=== PATIENT | male | born 1980 | race Two or more races ===

== ENCOUNTER 2018-06-07 23:02 | Emergency (ER) | payer OTHER ==
[~2018-06-07] VITALS: Ht 193 cm; Wt 129.3 kg
[2018-06-08] MEDS ORDERED: METOCLOPRAMIDE HCL 10 MG/2 ML VIAL ONE (00:53)
[2018-06-08] MEDS: IV NS 0.9% 1,000 ML BAG IV ONE (00:55)
[2018-06-08] MEDS: METOCLOPRAMIDE HCL 10 MG/2 ML VIAL IV ONE (00:55)
[2018-06-08 01:54] VITALS: BP 122/80
== END 2018-06-08 01:55 | disposition home or self-care (01) ==
LOC: ER 23:17
DX: G44.209 Tension-type headache, unspecified, not intractable (principal); E11.9 Type 2 diabetes mellitus without complications
CPT/HCPCS: 82962; 96374; 99284; A4606; J2765; J7030; Z7610

== ENCOUNTER 2023-03-31 11:37 | Emergency (ER) | payer OTHER ==
[~2023-03-31] VITALS: Ht 185.4 cm; Wt 90.7 kg
--- NOTE | 2023-03-31 11:43 | NUR ---
ABDI RA 989 AND CONTENT ADMINISTRATOR OFFICERS FROM LONG-TERM,C/O HEADACHE
[2023-03-31] MEDS ORDERED: IBUPROFEN 400 MG TABLET PO ONE (12:30)
[2023-03-31] MEDS ORDERED: ACETAMINOPHEN ES 500 MG TABLET ONE (12:30)
[2023-03-31] MEDS ORDERED: ACETAMINOPHEN ES 500 MG TABLET PO ONE (12:30)
[2023-03-31] MEDS ORDERED: IBUPROFEN 400 MG TABLET ONE (12:30)
--- NOTE | 2023-03-31 13:25 | NUR ---
pt is medically cleared. d/c to [facility] in stable condition.
[2023-03-31 13:26] VITALS: BP 132/84; O2SAT 99
== END 2023-03-31 13:27 ==
LOC: ER 11:55
DX: S00.12XA Contusion of left eyelid and periocular area, initial encounter (principal); R51.9 Headache, unspecified; E11.9 Type 2 diabetes mellitus without complications; Z60.2 Problems related to living alone; W22.8XXA Striking against or struck by other objects, initial encounter; Y93.89 Activity, other specified; Y92.89 Other specified places as the place of occurrence of the external cause; Y99.8 Other external cause status
CPT/HCPCS: 70450-TC; 70486-TC

== ENCOUNTER 2024-11-25 14:22 | Emergency (ER) | payer OTHER ==
[~2024-11-25] VITALS: Ht 193 cm; Wt 113.4 kg
[2024-11-25 16:06] VITALS: BP 148/92; TEMP 98.4; O2SAT 96
== END 2024-11-25 16:07 | disposition home or self-care (01) ==
LOC: ER 14:26
DX: S09.90XA Unspecified injury of head, initial encounter (principal); E11.9 Type 2 diabetes mellitus without complications; H53.2 Diplopia; Z88.0 Allergy status to penicillin; Z60.2 Problems related to living alone; W01.0XXA Fall on same level from slipping, tripping and stumbling without subsequent striking against object, initial encounter; Y93.89 Activity, other specified; Y92.89 Other specified places as the place of occurrence of the external cause; Y99.8 Other external cause status
CPT/HCPCS: 70450-TC; 70486-TC; 73030-TC

== ENCOUNTER 2025-01-01 03:19 | Emergency (ER) | payer OTHER ==
[~2025-01-01] VITALS: Ht 180.3 cm; Wt 79.4 kg
[2025-01-01 03:31] VITALS: BP 135/81; TEMP 98.3
[2025-01-01] MEDS ORDERED: INSU100V39 SQ (03:52)
[2025-01-01] MEDS ORDERED: INSU100V7 SQ (03:52)
[2025-01-01] MEDS ORDERED: GABA-532 PO (03:52)
[2025-01-01] MEDS ORDERED: METF-442 PO (03:52)
[2025-01-01 04:57] VITALS: O2SAT 97
== END 2025-01-01 04:57 | disposition home or self-care (01) ==
LOC: ER 03:23
DX: E11.9 Type 2 diabetes mellitus without complications (principal); Z76.0 Encounter for issue of repeat prescription; Z79.4 Long term (current) use of insulin; Z79.84 Long term (current) use of oral hypoglycemic drugs; Z79.899 Other long term (current) drug therapy; Z88.0 Allergy status to penicillin; Z60.2 Problems related to living alone

== ENCOUNTER 2025-05-07 09:00 | Emergency (ER) | payer OTHER ==
[~2025-05-07] VITALS: Ht 193 cm; Wt 113.4 kg
[~2025-05-07 09:00] MED LIST: GABA-532 PO; INSU100V39 SQ; INSU100V7 SQ; METF-442 PO
[2025-05-07 09:10] VITALS: BP 118/79; TEMP 98.3
[2025-05-07] MEDS ORDERED: IBUP-1955 PO (09:40)
[2025-05-07 09:51] VITALS: O2SAT 99
== END 2025-05-07 09:52 | disposition home or self-care (01) ==
LOC: ER 09:07
DX: S83.91XA Sprain of unspecified site of right knee, initial encounter (principal); E11.9 Type 2 diabetes mellitus without complications; Z79.4 Long term (current) use of insulin; Z79.84 Long term (current) use of oral hypoglycemic drugs; Z79.899 Other long term (current) drug therapy; Z88.0 Allergy status to penicillin; Z60.2 Problems related to living alone; W18.2XXA Fall in (into) shower or empty bathtub, initial encounter; Y93.E1 Activity, personal bathing and showering; Y92.89 Other specified places as the place of occurrence of the external cause; Y99.8 Other external cause status
CPT/HCPCS: 73564-TC